=== PATIENT | male | born 1960 | race Caucasian/White ===

== ENCOUNTER → 2017-06-30 | Outpatient (CLI) | payer OTHER | END | disposition home or self-care (01) | LOC: NM 08:09 | DX: I10 Essential (primary) hypertension (principal); R07.9 Chest pain, unspecified; Z82.49 Family history of ischemic heart disease and other diseases of the circulatory system | CPT/HCPCS: 78452; 93017; 96374; 96376; A9500 ==

== ENCOUNTER → 2021-01-11 | Outpatient (CLI) | payer OTHER ==
--- NOTE | 2021-01-11 16:15 | KCIC ---
3 views left rib cage study and PA view chest x-ray Clinical indications: Left lower rib pain after injury. FINDINGS: There is subtle nondisplaced fracture of the lateral aspect of the left eighth rib. No othe r fracture is apparent. Chest x-ray demonstrates mild left lung base atelectasis. No pleural effusion or pneumothorax is seen. IMPRESSION: Nondisplaced left eighth rib fracture. Electronically signed by: Dalton Castrejon MD (01/11/2021 4:12 PM) [id number]
== END ==
LOC: KCIC 11:21
PROVIDERS: ATTEND Family Medicine
DX: S22.32XA Fracture of one rib, left side, initial encounter for closed fracture (principal); R07.89 Other chest pain; X58.XXXA Exposure to other specified factors, initial encounter; Y93.89 Activity, other specified; Y92.89 Other specified places as the place of occurrence of the external cause; Y99.8 Other external cause status
CPT/HCPCS: 71101